=== PATIENT | male | born 2000 | race Caucasian/White ===

== ENCOUNTER 2020-12-12 03:31 | Emergency (ER) | payer OTHER, SELFPAY ==
[2020-12-12 03:36] VITALS: BP 134/79; PULSE 80; RESP 18; TEMP 37.2; O2SAT 100; BMI 22.4
--- NOTE | 2020-12-12 04:05 | ED.NAVMDI ---
HPI - Nausea/Vomiting/Diarrhea General Chief complaint: Nausea/Vomiting/Diarrhea Stated complaint: diarrhea, blood in still cramping Time Seen by Provider: 12/12/20 04:05 Source: patient Mode of arrival: Ambulatory Limitations: no limitations History of Present Illness HPI Narrative: Patient is a healthy 20-year-old male presents with diarrhea that started at 7:30 p.m.. He has had a few episodes. Last when he had some pink tinged with stool. No abdominal cramping nausea vomiting. He has not had any fever. He had a taco truck and pizza today. No on else is sick. He denies any dizziness or lightheadedness. Concerned about blood in stool. Related Data Allergies Allergy/AdvReac Type Severity Reaction Status Date / Time No Known Drug Allergies Allergy Verified 12/12/20 03:36 Review of Systems Review of Systems Narrative: GENERAL: Denies chills, fatigue, malaise, fever, sweats, travel HEENT: Denies sinus pain, ear pain, sore throat, difficulty swallowing, neck pain RESPIRATORY: Denies dyspnea, cough, wheezing, hemoptysis, sputum. CARDIOVASCULAR: Denies chest pain, palpitations, orthopnea, edema GASTROINTESTINAL: See HPI : Denies dysuria, frequency, incontinence, hematuria, urinary retention, flank pain. MUSCULOSKELETAL: Denies weakness, joint pain, or bony pain SKIN: No rash, no erythema, no pruritus NEUROLOGIC: Denies weakness, dizziness, headache, numbness, change in speech, confusion PSYCHIATRIC: No concerning psychosocial issues. 12 point review of systems is negative except for those stated above and HPI Patient History Social History Smoking Status: Never smoker Smoking Status: Never smoker Substance Use Type: does not use Exam Initial Vital Signs Initial Vital Signs: Vital Signs Temperature 98.9 F 12/12/20 03:36 Pulse Rate 80 12/12/20 03:36 Respiratory Rate 18 12/12/20 03:36 Blood Pressure 134/79 12/12/20 03:36 Pulse Oximetry 100 12/12/20 03:36 GENERAL: Well-appearing, well-nourished and in no acute distress. HEENT: Head atraumatic,EOMI, pupils reactive, face symmetric, moist mucous membranes CARDIOVASCULAR: Regular rate and rhythm without murmurs, rubs or gallops. RESPIRATORY: Breath sounds equal bilaterally, no wheezes rales or rhonchi. ABDOMEN: Soft, nontender. Normoactive bowel sounds all 4 quadrants. No guarding or rebound. RECTAL: No stool EXTREMITIES: Normal range of motion, no clubbing or edema. Neurovascularly intact NEUROLOGICAL: Alert and oriented x4.Normal gait and speech. SKIN: Warm, dry, no laceration, no petechiae, no rashes or lesions. Course Vital Signs Vital signs: Vital Signs - 8 hr 12/12/20 03:36 Temperature 98.9 F Pulse Rate 80 Respiratory Rate 18 Blood Pressure 134/79 Pulse Oximetry 100 MDM - Nausea/Vomiting/Diarrhea MDM Narrative Medical decision making narrative: Patient is had diarrhea for a few hours but is overall well. Tolerating fluids no significant abdominal cramping concern for some mild blood in his stool. Rectal exam does not show any stool. Discharge Plan Departure Patient Disposition: Home Clinical Impression: Gastroenteritis Instructions: DI for Viral Gastroenteritis -- Adult Activity Restrictions/Additional Instructions: *You have been diagnosed with gastroenteritis *What to do: 49 likely have a stomach virus. Sometimes this can be a blood tinged. If you are having mariana bloody stool return to emergency department. Stay hydrated with Gatorade or Gatorade like product *Continue to take medications as directed Tylenol or Motrin as needed for stomach cramps *Follow up with your primary care provider in 2-3 days *Return to ER if you should have mariana blood, not able to tolerate fluids, decreased pain, dizziness, lightheadedness any new, worsening or concerning symptoms
== END 2020-12-12 04:18 | disposition home or self-care (01) ==
PROVIDERS: Emergency Provider Emergency Medicine
DX: K52.9 Noninfective gastroenteritis and colitis, unspecified (principal)
CPT/HCPCS: 99281